=== PATIENT | female | born 1960 | race Caucasian/White ===

== ENCOUNTER 2021-09-29 08:43 | Outpatient (CLI) | payer SELFPAY ==
[2021-09-29 09:16] LABS: HF Add Manual Diff No
[2021-09-29 09:20] LABS: Basophils # 0.1 10^3/uL (0.0-0.1); Basophils % 1.4 %; Eosinophils # 0.1 10^3/uL (0.0-0.8); Eosinophils % 1.4 %; Hematocrit 43.8 % (37.0-47.0); Lymphocytes % 34.6 %; Mean Corpuscular HGB Conc 34.2 g/dL (30.0-36.0); Mean Corpuscular Hemoglobin 30.1 pg (28.0-34.0); Mean Platelet Volume 9.6 fL (7.4-10.4); Monocytes # 0.4 10^3/uL (0.2-0.9); Monocytes % 6.9 %; Neutrophils # 3.22 10^3/uL (1.8-7.7); Neutrophils % 55.4 %; Nucleated Red Blood Cells % 0 %; Platelet Count 317 10^3/cmm (130-400); Red Blood Count 4.98 10^6/uL (4.1-5.3); Red Cell Distribution Width 12.6 % (12.1-15.1); White Blood Count 5.8 10^3/uL (4.0-10.0)
[2021-09-29 09:55] LABS: Alanine Aminotransferase 33 U/L (0-33); Albumin Level 4.5 g/dL (3.5-5.2); Alkaline Phosphatase 75 IU/L (35-105); Anion Gap 16.9 (5-19); Aspartate Amino Transferase 19 U/L (0-32); Blood Urea Nitrogen 14 mg/dL (8-23); Calcium 9.7 mg/dL (8.5-10.5); Carbon Dioxide 24 mmol/L (22-29); Chloride 101 mmol/L (98-107); Chol HDL Ratio 5.52 mg/dL (0.0-4.40); Cholesterol 232 mg/dL (0-200); Globulin 2.8 g/dL (1.3-4.6); Glomerular Filtration Rate 84.5 mL/min (90-130); Glucose 154 mg/dL (65-115); HDL Cholesterol 42 mg/dL (60-100); LDL Cholesterol Calculated 155 mg/dL (50-129); LDL HDL Ratio 3.69 RATIO (0.00-3.22); Osmolality Calculated 290 mOsm/kg (285-295); Potassium 3.9 mmol/L (3.5-5.1); Sodium 138 mmol/L (136-145); Thyroid Stimulating Hormone 2.42 uIU/mL (0.27-4.20); Total Bilirubin 0.4 mg/dL (0.15-1.2); Total Protein 7.3 g/dL (6.6-8.7); Triglycerides 176 mg/dL (0-150)
[2021-09-29 13:06] LABS: Estmated Average Glucose 148; Hemoglobin A1C 6.8 % (4.0-6.0)
== END 2021-09-29 08:44 | disposition home or self-care (01) ==
LOC: LAB 08:47
PROVIDERS: Visit Provider Dermatology
DX: Z00.00 Encounter for general adult medical examination without abnormal findings (principal)
CPT/HCPCS: 36415

== ENCOUNTER 2023-09-27 08:42 | Outpatient (CLI) | payer SELFPAY ==
[2023-09-27 09:23] LABS: HF Add Manual Diff No
[2023-09-27 09:26] LABS: Basophils # 0.1 10^3/uL (0.0-0.1); Eosinophils # 0.1 10^3/uL (0.0-0.8); Eosinophils % 3.4 %; Hematocrit 41.6 % (36-47); Lymphocytes # 1.5 10^3/uL (0.8-4.8); Lymphocytes % 37.6 %; Mean Corpuscular HGB Conc 32.7 g/dL (30-55); Mean Corpuscular Hemoglobin 27.5 pg (27-33); Mean Platelet Volume 9.5 fL (7.4-10.4); Monocytes # 0.5 10^3/uL (0.2-0.9); Monocytes % 11.8 %; Neutrophils # 1.83 10^3/uL (1.8-7.7); Nucleated Red Blood Cells % 0 %; Platelet Count 270 10^3/cmm (157-399); Red Blood Count 4.95 10^6/uL (3.85-5.65); Red Cell Distribution Width 15.1 % (12.1-15.1); White Blood Count 4.07 10^3/uL (3.29-11.43)
[2023-09-27 09:45] LABS: Estmated Average Glucose 157; Hemoglobin A1C 7.1 % (4.0-6.0)
[2023-09-27 09:53] LABS: Alanine Aminotransferase 12 U/L (0-33); Albumin Level 4.1 g/dL (3.5-5.2); Alkaline Phosphatase 77 U/L (35-105); Anion Gap 14.5 (5-19); Aspartate Amino Transferase 15 U/L (0-32); Blood Urea Nitrogen 9 mg/dL (8-23); Carbon Dioxide 24 mmol/L (22-29); Chloride 105 mmol/L (98-107); Chol HDL Ratio 5.16 mg/dL (0.0-4.40); Cholesterol 222 mg/dL (0-200); Globulin 2.7 g/dL (1.3-4.6); Glomerular Filtration Rate 100.3 mL/min (90-130); Glucose 137 mg/dL (65-115); HDL Cholesterol 43 mg/dL (60-100); LDL Cholesterol Calculated 159 mg/dL (50-129); Osmolality Calculated 291 mOsm/kg (285-295); Potassium 3.5 mmol/L (3.5-5.1); Sodium 140 mmol/L (136-145); Thyroid Stimulating Hormone 2.11 uIU/mL (0.27-4.20); Total Bilirubin 0.4 mg/dL (0.15-1.2); Total Protein 6.8 g/dL (6.6-8.7); Triglycerides 102 mg/dL (0-150)
== END 2023-09-27 08:43 | disposition home or self-care (01) ==
LOC: LAB 08:44
PROVIDERS: PCP Family Medicine; Visit Provider Dermatology
DX: Z01.89 Encounter for other specified special examinations (principal)
CPT/HCPCS: 36415

== ENCOUNTER → 2023-11-23 13:28 | Outpatient (BNVA) | payer MEDICARE, OTHER, SELFPAY | PROVIDERS: PCP Family Medicine; Visit Provider Family Medicine | DX: L98.9 Disorder of the skin and subcutaneous tissue, unspecified (principal) | CPT/HCPCS: 88305 ==

== ENCOUNTER 2023-12-06 09:40 | Outpatient (CLI) | payer MEDICARE, OTHER, SELFPAY ==
--- NOTE | 2023-12-06 10:00 | MM_ITS ---
WS: [id number] SCREENING DIGITAL BREAST TOMOSYNTHESIS MAMMOGRAM WITH CAD HISTORY: breast cancer screen COMPARISON: None available. Bilateral CC and MLO with tomosynthesis and synthetic mammography submitted. Computer aided detection analyzed. Breast composition: The breasts are heterogeneously dense, which may obscure small masses. 3 mm oval circumscribed high density mass 3:00 middle depth RIGHT breast. There is an adjacent smaller high den sity mass also. In the LEFT breast 8 mm slightly lobulated mass at 3:00 at a middle depth. Recommend additional imaging of both breasts. MM/[place] [id number] IMPRESSION: BI-RADS: 0-Incomplete: Need additional imaging evaluation FOLLOW UP: Need Additional Imaging RIGHT breast: Spot compression views (CC and MLO). True ML. Ultrasound to follo w if abnormality persists. LEFT breast: Spot compression views (CC and MLO). True ML. Ultrasound to follow if abnormality persists.
== END 2023-12-06 09:41 | disposition home or self-care (01) ==
PROVIDERS: PCP Family Medicine; Visit Provider Family Medicine
DX: Z12.39 Encounter for other screening for malignant neoplasm of breast (principal); R92.333 Mammographic heterogeneous density, bilateral breasts; N63.12 Unspecified lump in the right breast, upper inner quadrant; N63.21 Unspecified lump in the left breast, upper outer quadrant
CPT/HCPCS: 77063; 77067

== ENCOUNTER → 2023-12-26 13:38 | Outpatient (BNVA) | payer MEDICARE, OTHER, SELFPAY | PROVIDERS: PCP Family Medicine; Visit Provider Podiatrist Foot & Ankle Surgery | DX: L84 Corns and callosities; M77.41 Metatarsalgia, right foot; M77.42 Metatarsalgia, left foot; M21.6X1 Other acquired deformities of right foot; M21.6X2 Other acquired deformities of left foot; E11.69 Type 2 diabetes mellitus with other specified complication | CPT/HCPCS: 11055; 99203 ==

== ENCOUNTER 2024-01-16 09:19 | Outpatient (CLI) | payer MEDICARE, OTHER, SELFPAY ==
--- NOTE | 2024-01-16 09:30 | MM_ITS ---
WS: [id number] ADDITIONAL VIEWS BILATERAL MAMMOGRAM WITH DIGITAL BREAST TOMOSYNTHESIS. Bilateral breast ultrasound, limited HISTORY: birad 0 bilateral mammos/ABNORMAL MAMMO COMPARISON: 12/06/2023 Spot compression views RIGHT and LEFT breast in CC, MLO projections and true ML submitted with digita l breast tomosynthesis and SM. Breast composition: The breasts are heterogeneously dense, which may obscure small masses. RIGHT: Round, microlobulated high density mass in the RIGHT breast at 3:00 middle depth is identified measuring 6 x 4 x 6 mm. This may be 2 small adjacent masses 1 lobulated mass. LEFT breast: Persistent round mass with partially obscured borders of equal density to the adjacent s oft tissue. Mass measures 7 x 5 x 8 mm at 3:00 mid to posterior depth. Bilateral breast ultrasound, limited. RIGHT breast: 2 adjacent cysts 9:00 RIGHT breast with the cluster measuring 0.6 x 0.4 x 0.4 cm. No in creased vascularity. LEFT breast: There is a small cluster of cysts in the LEFT breast at 3:00, 3 cm from the nipple there is an additional smaller cyst measuring 1.2 x 0.6 x 0.9 cm. This corresponds to the mammographic abn ormality. MM/MM diag BI tomosynthesis [id number] IMPRESSION: BI-RADS: 2 - Benign FOLLOW UP: 1 Year Follow-up
--- NOTE | 2024-01-16 09:58 | US_ITS ---
WS: [id number] ADDITIONAL VIEWS BILATERAL MAMMOGRAM WITH DIGITAL BREAST TOMOSYNTHESIS. Bilateral breast ultrasound, limited HISTORY: birad 0 bilateral mammos/ABNORMAL MAMMO COMPARISON: 12/06/2023 Spot compression views RIGHT and LEFT breast in CC, MLO projections and true ML submitted with digita l breast tomosynthesis and SM. Breast composition: The breasts are heterogeneously dense, which may obscure small masses. RIGHT: Round, microlobulated high density mass in the RIGHT breast at 3:00 middle depth is identified measuring 6 x 4 x 6 mm. This may be 2 small adjacent masses 1 lobulated mass. LEFT breast: Persistent round mass with partially obscured borders of equal density to the adjacent s oft tissue. Mass measures 7 x 5 x 8 mm at 3:00 mid to posterior depth. Bilateral breast ultrasound, limited. RIGHT breast: 2 adjacent cysts 9:00 RIGHT breast with the cluster measuring 0.6 x 0.4 x 0.4 cm. No in creased vascularity. LEFT breast: There is a small cluster of cysts in the LEFT breast at 3:00, 3 cm from the nipple there is an additional smaller cyst measuring 1.2 x 0.6 x 0.9 cm. This corresponds to the mammographic abn ormality. US/US breast BI limited* [id number] IMPRESSION: BI-RADS: 2 - Benign FOLLOW UP: 1 Year Follow-up
== END 2024-01-16 09:20 | disposition home or self-care (01) ==
PROVIDERS: PCP Family Medicine; Visit Provider Family Medicine
DX: R92.8 Other abnormal and inconclusive findings on diagnostic imaging of breast (principal); R92.333 Mammographic heterogeneous density, bilateral breasts; N60.12 Diffuse cystic mastopathy of left breast; N60.11 Diffuse cystic mastopathy of right breast
CPT/HCPCS: 76642; 77062; G0279

== ENCOUNTER → 2024-03-19 10:46 | Outpatient (BNVA) | payer MEDICARE, OTHER, SELFPAY | PROVIDERS: PCP Family Medicine; Visit Provider Family Medicine | DX: I10 Essential (primary) hypertension (principal); E11.9 Type 2 diabetes mellitus without complications; G43.109 Migraine with aura, not intractable, without status migrainosus; R30.0 Dysuria; D64.9 Anemia, unspecified | CPT/HCPCS: 80053; 80061; 81000; 81003; 83036; 85025 ==

== ENCOUNTER → 2024-04-03 10:03 | Outpatient (BNVA) | payer MEDICARE, OTHER, SELFPAY | PROVIDERS: PCP Family Medicine; Visit Provider Family Medicine | DX: I10 Essential (primary) hypertension (principal) | CPT/HCPCS: 80048 ==

== ENCOUNTER → 2024-06-19 09:36 | Outpatient (BNVA) | payer MEDICARE, OTHER, SELFPAY | PROVIDERS: PCP Family Medicine; Visit Provider Podiatrist Foot & Ankle Surgery | DX: L84 Corns and callosities (principal); M77.41 Metatarsalgia, right foot; M77.42 Metatarsalgia, left foot; M21.6X1 Other acquired deformities of right foot; M21.6X2 Other acquired deformities of left foot; E11.69 Type 2 diabetes mellitus with other specified complication | CPT/HCPCS: 99213 ==

== ENCOUNTER → 2024-09-21 09:18 | Outpatient (BNVA) | payer MEDICARE, OTHER, SELFPAY | PROVIDERS: PCP Family Medicine; Visit Provider Family Medicine | DX: I10 Essential (primary) hypertension (principal); E11.9 Type 2 diabetes mellitus without complications | CPT/HCPCS: 80053; 80061; 83036 ==

== ENCOUNTER → 2024-11-20 09:29 | Outpatient (BNVA) | payer MEDICARE, OTHER, SELFPAY | PROVIDERS: PCP Family Medicine; Visit Provider Podiatrist Foot & Ankle Surgery | DX: E11.42 Type 2 diabetes mellitus with diabetic polyneuropathy (principal); L60.3 Nail dystrophy; L84 Corns and callosities; G62.9 Polyneuropathy, unspecified | CPT/HCPCS: 11721; 99213 ==

== ENCOUNTER → 2024-12-24 08:47 | Outpatient (BNVA) | payer MEDICARE, OTHER, SELFPAY | PROVIDERS: PCP Family Medicine; Visit Provider Family Medicine | DX: I10 Essential (primary) hypertension (principal); E11.9 Type 2 diabetes mellitus without complications; E78.5 Hyperlipidemia, unspecified | CPT/HCPCS: 80061; 83036 ==

== ENCOUNTER 2025-01-22 14:41 | Outpatient (CLI) | payer MEDICARE, OTHER, SELFPAY ==
--- NOTE | 2025-01-22 15:00 | XR_ITS ---
WS: [email or web address] SCREENING DEXA SCAN [employer] CLINICAL INFORMATION: osteoporosis screening COMPARISON: None. FINDINGS: The L1-L4 bone mineral density measures 0.986 g/cm2. This corresponds to a T score score of -1.6 and Z score of -0.3. Left femoral neck bone mineral density measures 0.887 g/cm2. This corresponds to a T score of -1.0 and Z score of 0.1. Right femoral neck bone mineral density measures 0.899 g/cm2. This corresponds to a T score -0.9of and Z score of 0.2. Mean femoral neck bone mineral density measures 0.893 g/cm2. This corresponds to a T score of -0.9 and Z score of 0.2. XR/XR DEXA axial skeleton* [id number] IMPRESSION: Osteopenia lumbar spine. Osteopenia LEFT femoral neck. Patient's FRAX calculated 10 year probability for major osteoporotic fracture i s 9.5% and osteoporotic hip fracture is 1.2%.
== END 2025-01-22 14:42 | disposition home or self-care (01) ==
LOC: RAD 14:43
PROVIDERS: PCP Family Medicine; Visit Provider Family Medicine
DX: Z13.820 Encounter for screening for osteoporosis (principal); Z78.0 Asymptomatic menopausal state; M85.88 Other specified disorders of bone density and structure, other site
CPT/HCPCS: 77080

== ENCOUNTER → 2025-01-23 10:54 | Outpatient (BNVA) | payer MEDICARE, OTHER, SELFPAY | PROVIDERS: PCP Family Medicine; Visit Provider Family Medicine | DX: Z12.11 Encounter for screening for malignant neoplasm of colon (principal) | CPT/HCPCS: 82270 ==